=== PATIENT | female | born 1965 | race Two or more races ===

== ENCOUNTER 2023-12-10 16:51 | Inpatient (IN) | payer MEDICAID ==
[~2023-12-10] VITALS: Ht 160 cm; Wt 74.4 kg
[2023-12-10 18:40] VITALS: BP 106/56; PULSE 82; RESP 14; TEMP 98.3; O2SAT 95
[2023-12-10 18:47] VITALS: RESP 18; O2SAT 98
[2023-12-10] MEDS ORDERED: NITROGLYCERIN 0.4 MG SL TAB SL PRN (19:45)
[2023-12-10] MEDS ORDERED: MORPHINE SULFATE INJ 2 MG/ml SYRG IV PRN ×2 (19:45)
[2023-12-10] MEDS ORDERED: HYDROcodone-ACET 5/325MG TAB PO PRN (19:45)
[2023-12-10] MEDS ORDERED: DOCUSATE SOD 100 MG CAP PO PRN (19:45)
[2023-12-10] MEDS ORDERED: LISI20TA56 PO (19:45)
[2023-12-10] MEDS ORDERED: CELE200C PO (19:47)
[2023-12-10 20:00] VITALS: PULSE 76; RESP 17
[2023-12-10 20:49] VITALS: BP 127/77; PULSE 80; RESP 14; TEMP 98.3; O2SAT 99
[2023-12-10] MEDS: ATORVASTATIN 20 MG TAB PO SCH (22:46)
[2023-12-10] MEDS: ENOXAPARIN SOD 80 MG/0.8ML SYRINGE SC ONE (22:47)
[2023-12-11] VITALS (9 sets, daily range): BP systolic 101–132; BP diastolic 59–75; PULSE 76–91; RESP 14–18; TEMP 98–98.9; O2SAT 93–97
[2023-12-11] MEDS: cefTRIAXone 1GM/50ML D5W 50 ML IV SCH (04:11)
[2023-12-11 06:07] LABS: Basophils # (auto) 0 10 ^3/uL (0-0.2); Basophils % (auto) 0.5 % (0.0-2.0); Eosinophils # (auto) 0.1 10 ^3/uL (0-0.8); Eosinophils % (auto) 1.5 % (0.0-7.0); Hematocrit 35.2 % (36.0-46.0); Hemoglobin 11.3 g/dL (12.2-16.2); Lymphocytes # (auto) 0.9 10 ^3/uL (0.4-5.4); Lymphocytes % (auto) 17.1 % (10.0-50.0); Mean Corpuscular Hemoglobin 28.7 pg (28.0-32.0); Mean Corpuscular Hgb Conc. 32.1 g/dL (32.0-36.0); Mean Corpuscular Volume 89.2 fL (80.0-100.0); Monocytes # (auto) 0.6 10 ^3/uL (0-1.3); Monocytes % (auto) 11.4 % (0.0-12.0); Neutrophils # (auto) 3.7 10 ^3/uL (1.6-8.6); Neutrophils % (auto) 69.5 % (37.0-80.0); Red Blood Cells 3.95 10^6/uL (4.0-5.20); Red Cell Distribution Width 13.4 % (11.8-14.3); White Blood Cell 5.3 10^3/uL (4.4-10.8)
[2023-12-11 06:10] LABS: Urine Bacteria None Seen /hpf (None Seen)
[2023-12-11 06:13] LABS: Alanine Aminotransferase 55 U/L (7-40); Albumin 3.5 g/dL (3.2-4.8); Alkaline Phosphatase 143 U/L (46-116); Anion Gap 7 (5-15); Aspartate Aminotransferase 57 U/L (13-40); Bilirubin, Total 0.3 mg/dL (0.2-1.0); Blood Urea Nitrogen 13 mg/dL (9-23); Calcium 8.9 mg/dL (8.5-10.1); Carbon Dioxide 26 mmol/L (20-30); Chloride 110 mmol/L (98-107); Glucose 99 mg/dL (74-106); Potassium 4.3 mmol/L (3.5-5.1); Sodium 143 mmol/L (136-145); Total Protein 5.9 g/dL (5.7-8.2)
[2023-12-11 06:18] LABS: BUN/Creatinine Ratio 18.6 (10.0-20.0)
[2023-12-11 06:43] LABS: Urine Blood Negative /uL (Negative); Urine Clarity Clear (Clear); Urine Color Yellow (Yellow); Urine Mucus FEW (None Seen); Urine Protein, UAD TRACE (Negative); Urine Specific Gravity 1.024 (1.001-1.035); Urine Urobilinogen 3 mg/dL (Negative); Urine WBC 3 /hpf (0 - 5)
[2023-12-11] MEDS ORDERED: ENOXAPARIN SOD 80 MG/0.8ML SYRINGE SC SCH (10:00)
[2023-12-11] MEDS: ASPirin-EC 81 mg tab PO SCH (10:46)
[2023-12-11] MEDS: METOPROLOL TARTRATE 25 MG TAB PO SCH (10:46)
[2023-12-11] MEDS: ONDANSETRON HCL 4 MG/2 ML VIAL IV PRN (13:36)
[2023-12-11] MEDS: ACETAMINOPHEN 325 MG TAB PO PRN (21:30)
[2023-12-11] MEDS: ATORVASTATIN 20 MG TAB PO SCH (21:33)
[2023-12-11] MEDS: ENOXAPARIN SOD 80 MG/0.8ML SYRINGE SC SCH (21:37)
[2023-12-12] VITALS (8 sets, daily range): BP systolic 101–128; BP diastolic 57–72; PULSE 62–92; RESP 16–20; TEMP 98–98.6; O2SAT 93–98
[2023-12-12 06:15] LABS: Basophils # (auto) 0 10 ^3/uL (0-0.2); Basophils % (auto) 0.4 % (0.0-2.0); Eosinophils # (auto) 0.1 10 ^3/uL (0-0.8); Eosinophils % (auto) 1.9 % (0.0-7.0); Hematocrit 37.4 % (36.0-46.0); Lymphocytes # (auto) 1.3 10 ^3/uL (0.4-5.4); Lymphocytes % (auto) 21.5 % (10.0-50.0); Mean Corpuscular Hemoglobin 28.8 pg (28.0-32.0); Monocytes # (auto) 0.7 10 ^3/uL (0-1.3); Monocytes % (auto) 11.1 % (0.0-12.0); Neutrophils # (auto) 4.1 10 ^3/uL (1.6-8.6); Neutrophils % (auto) 65.1 % (37.0-80.0); Nucleated Red Blood Cells % 0.1 %; Red Blood Cells 4.15 10^6/uL (4.0-5.20); Red Cell Distribution Width 13.3 % (11.8-14.3); White Blood Cell 6.2 10^3/uL (4.4-10.8)
[2023-12-12 06:24] LABS: Chloride 106 mmol/L (98-107); Potassium 4.3 mmol/L (3.5-5.1); Sodium 140 mmol/L (136-145)
[2023-12-12 06:25] LABS: Anion Gap 4 (5-15); Calcium 9.4 mg/dL (8.5-10.1); Carbon Dioxide 30 mmol/L (20-30)
[2023-12-12 06:30] LABS: BUN/Creatinine Ratio 15.2 (10.0-20.0); Blood Urea Nitrogen 10 mg/dL (9-23); Glucose 95 mg/dL (74-106)
[2023-12-13] VITALS (13 sets, daily range): BP systolic 101–167; BP diastolic 52–80; PULSE 75–96; RESP 16–21; TEMP 97.5–98.2; O2SAT 90–99
[2023-12-13 06:17] LABS: Basophils # (auto) 0 10 ^3/uL (0-0.2); Basophils % (auto) 0.4 % (0.0-2.0); Eosinophils # (auto) 0.1 10 ^3/uL (0-0.8); Eosinophils % (auto) 1.9 % (0.0-7.0); Hematocrit 36.3 % (36.0-46.0); Hemoglobin 11.7 g/dL (12.2-16.2); Lymphocytes # (auto) 1.3 10 ^3/uL (0.4-5.4); Mean Corpuscular Hemoglobin 29.1 pg (28.0-32.0); Mean Corpuscular Hgb Conc. 32.3 g/dL (32.0-36.0); Monocytes # (auto) 0.6 10 ^3/uL (0-1.3); Monocytes % (auto) 9.7 % (0.0-12.0); Neutrophils # (auto) 4.4 10 ^3/uL (1.6-8.6); Red Blood Cells 4.04 10^6/uL (4.0-5.20); Red Cell Distribution Width 13.4 % (11.8-14.3); White Blood Cell 6.5 10^3/uL (4.4-10.8)
[2023-12-13 06:23] LABS: Anion Gap 6 (5-15); Carbon Dioxide 29 mmol/L (20-30); Chloride 105 mmol/L (98-107); Potassium 4.4 mmol/L (3.5-5.1); Sodium 140 mmol/L (136-145)
[2023-12-13 06:24] LABS: Calcium 9.3 mg/dL (8.5-10.1)
[2023-12-13 06:29] LABS: BUN/Creatinine Ratio 13.7 (10.0-20.0); Blood Urea Nitrogen 10 mg/dL (9-23); Glucose 93 mg/dL (74-106)
[2023-12-13 09:21] LABS: Partial Thromboplastin Time 28.5 SEC (24.5-34.5); Prothrombin Time 10.6 sec (9.3-11.8)
[2023-12-13] MEDS: HEPARIN SODIUM (PORCINE) 5000 UNITS/ML 1ML VIAL ONE (10:06)
[2023-12-13] MEDS: VERAPAMIL 2.5MG/ML INJ 2ML VIAL IV ONE (10:06)
[2023-12-13] MEDS: fentaNYL CITRATE 100 MCG/2 ML VL ONE (10:06)
[2023-12-13] MEDS: ANGIOMAX 250 MG VIAL IV ONE (10:06)
[2023-12-13] MEDS: SODIUM CHL 0.9% 50 ML ONE (10:07)
[2023-12-13] MEDS: IODIXANOL 320MG/ML 100ML BTL IV ONE (10:07)
[2023-12-13] MEDS: MIDAZOLAM HCL 2MG/2ML 2ml VIAL (1mg/ml) ONE (10:07)
[2023-12-13] MEDS: LIDOCAINE 2%HCL (LOCAL ANESTH.) INJ 20ML MDV ONE (10:07)
[2023-12-13] MEDS: ATROPINE SULF 1 MG/10ml SYR ONE (10:52)
[2023-12-13] MEDS: TICAGRELOR 90 MG TAB ONE (11:21)
[2023-12-13] MEDS: ASPirin 81 mg TAB ONE (11:22)
[2023-12-13 13:06] LABS: Body Fluid Polymorphonuclear 6 % (0-25); Body Fluid Red Blood Cells 918 CUMM (0-2000); Body Fluid White Blood Cells 158 CUMM (0-200)
[2023-12-13] MEDS ORDERED: LISI10TA34 PO (15:41)
[2023-12-13] MEDS ORDERED: DICY20TA PO (15:44)
[2023-12-13] MEDS ORDERED: ROSU20TA14 PO (15:44)
[2023-12-13] MEDS ORDERED: OMEP20TA PO (15:44)
[2023-12-13] MEDS ORDERED: OXYB5TAB14 PO (15:44)
[2023-12-13] MEDS: CLOPIDOGREL BISULFATE 75 MG TAB PO ONE (20:58)
[2023-12-14] VITALS (8 sets, daily range): BP systolic 101–123; BP diastolic 52–70; PULSE 64–88; RESP 16–19; TEMP 97.3–98.2; O2SAT 82–100
[2023-12-14 06:17] LABS: Chloride 103 mmol/L (98-107); Potassium 4.2 mmol/L (3.5-5.1); Sodium 136 mmol/L (136-145)
[2023-12-14 06:18] LABS: Anion Gap 5 (5-15); Calcium 8.7 mg/dL (8.7-10.4); Carbon Dioxide 28 mmol/L (20-30)
[2023-12-14 06:23] LABS: BUN/Creatinine Ratio 14.3 (10.0-20.0); Blood Urea Nitrogen 9 mg/dL (9-23); Glucose 95 mg/dL (74-106)
[2023-12-14 06:32] LABS: Basophils # (auto) 0 10 ^3/uL (0-0.2); Basophils % (auto) 0.3 % (0.0-2.0); Eosinophils # (auto) 0.1 10 ^3/uL (0-0.8); Eosinophils % (auto) 1.3 % (0.0-7.0); Hematocrit 38.2 % (36.0-46.0); Hemoglobin 12.4 g/dL (12.2-16.2); Lymphocytes # (auto) 1.1 10 ^3/uL (0.4-5.4); Lymphocytes % (auto) 15.1 % (10.0-50.0); Mean Corpuscular Hemoglobin 29.4 pg (28.0-32.0); Mean Corpuscular Hgb Conc. 32.4 g/dL (32.0-36.0); Mean Corpuscular Volume 90.5 fL (80.0-100.0); Monocytes # (auto) 0.7 10 ^3/uL (0-1.3); Neutrophils # (auto) 5.4 10 ^3/uL (1.6-8.6); Neutrophils % (auto) 73.3 % (37.0-80.0); Red Blood Cells 4.22 10^6/uL (4.0-5.20); Red Cell Distribution Width 13.4 % (11.8-14.3); White Blood Cell 7.4 10^3/uL (4.4-10.8)
[2023-12-14] MEDS: CLOPIDOGREL BISULFATE 75 MG TAB PO SCH (09:29)
[2023-12-14] MEDS ORDERED: CLOP75TA70 PO (17:04)
[2023-12-14] MEDS ORDERED: MET25T PO (17:04)
[2023-12-14] MEDS ORDERED: ASPI-543 PO (17:04)
[2023-12-14] MEDS ORDERED: FURO1TAB31 PO (17:04)
[2023-12-14] MEDS ORDERED: SPIR25TA PO (17:04)
[2023-12-14] MEDS ORDERED: ATOR20TA50 PO (17:04)
[2023-12-15 10:06] LABS: Protein, Body Fluid 5.1 g/dL (.)
== END 2023-12-14 18:38 | disposition home or self-care (01) | DRG 174 ==
LOC: TELE-CENTR 18:30
PROVIDERS: ADMIT Nurse Practitioner Family; ATTEND Internal Medicine
PROC: 4A023N7 Measurement of Cardiac Sampling and Pressure, Left Heart, Percutaneous Approach (ICD-10-PCS; principal; 2023-12-13)
PROC: 027034Z Dilation of Coronary Artery, One Artery with Drug-eluting Intraluminal Device, Percutaneous Approach (ICD-10-PCS; 2023-12-13)
PROC: B2111ZZ Fluoroscopy of Multiple Coronary Arteries using Low Osmolar Contrast (ICD-10-PCS; 2023-12-13)
PROC: 02F03ZZ Fragmentation in Coronary Artery, One Artery, Percutaneous Approach (ICD-10-PCS; 2023-12-13)
PROC: 0W9G3ZZ Drainage of Peritoneal Cavity, Percutaneous Approach (ICD-10-PCS; 2023-12-13)
DX: I21.4 Non-ST elevation (NSTEMI) myocardial infarction (principal); J90 Pleural effusion, not elsewhere classified; R18.8 Other ascites; C22.8 Malignant neoplasm of liver, primary, unspecified as to type; E66.9 Obesity, unspecified; K40.90 Unilateral inguinal hernia, without obstruction or gangrene, not specified as recurrent; N39.0 Urinary tract infection, site not specified; K76.9 Liver disease, unspecified; E78.5 Hyperlipidemia, unspecified; I10 Essential (primary) hypertension; R73.03 Prediabetes; I25.10 Atherosclerotic heart disease of native coronary artery without angina pectoris; Z79.899 Other long term (current) drug therapy; Z68.28 Body mass index [BMI] 28.0-28.9, adult; Z79.82 Long term (current) use of aspirin
CPT/HCPCS: 36415; 49083; 71045; 76700; 76942; 80048; 80053; 81001; 83986; 84484; 85025; 85610; 85730; 87086; 87205; 89051; 92941; 92972; 93005; 93306; 93458; 99152; G0378; J2250; J2405; Q9967

== ENCOUNTER 2023-12-27 08:58 | Inpatient (IN) | payer MEDICAID ==
[~2023-12-27] VITALS: Ht 160 cm; Wt 70.6 kg
[~2023-12-27 08:58] MED LIST: ASPI-543 PO; ATOR20TA50 PO; CELE200C PO; CLOP75TA70 PO; DICY20TA PO; FURO1TAB31 PO; MET25T PO; OMEP20TA PO; OXYB5TAB14 PO; SPIR25TA PO
[2023-12-27 09:40] LABS: Basophils # (auto) 0 10 ^3/uL (0-0.2); Basophils % (auto) 0.5 % (0.0-2.0); Eosinophils # (auto) 0 10 ^3/uL (0-0.8); Eosinophils % (auto) 0.5 % (0.0-7.0); Hematocrit 35.6 % (36.0-46.0); Hemoglobin 11.7 g/dL (12.2-16.2); Lymphocytes # (auto) 1.1 10 ^3/uL (0.4-5.4); Lymphocytes % (auto) 13.3 % (10.0-50.0); Mean Corpuscular Hemoglobin 28.8 pg (28.0-32.0); Mean Corpuscular Hgb Conc. 32.9 g/dL (32.0-36.0); Mean Corpuscular Volume 87.5 fL (80.0-100.0); Monocytes # (auto) 0.8 10 ^3/uL (0-1.3); Monocytes % (auto) 9.6 % (0.0-12.0); Neutrophils # (auto) 6.2 10 ^3/uL (1.6-8.6); Neutrophils % (auto) 76.1 % (37.0-80.0); Nucleated Red Blood Cells % 0.1 %; Red Blood Cells 4.07 10^6/uL (4.0-5.20); Red Cell Distribution Width 13.4 % (11.8-14.3); White Blood Cell 8.2 10^3/uL (4.4-10.8)
[2023-12-27 09:54] LABS: Alanine Aminotransferase 30 U/L (7-40); Albumin 3.7 g/dL (3.2-4.8); Alkaline Phosphatase 129 U/L (46-116); Anion Gap 5 (5-15); Aspartate Aminotransferase 27 U/L (13-40); BUN/Creatinine Ratio 13.6 (10.0-20.0); Bilirubin, Total 0.8 mg/dL (0.2-1.0); Blood Urea Nitrogen 11 mg/dL (9-23); Calcium 8.9 mg/dL (8.5-10.1); Carbon Dioxide 30 mmol/L (20-30); Chloride 100 mmol/L (98-107); Glucose 92 mg/dL (74-106); Potassium 4.6 mmol/L (3.5-5.1); Sodium 135 mmol/L (136-145); Total Protein 6.2 g/dL (5.7-8.2)
[2023-12-27 11:06] LABS: Urine Bacteria None Seen /hpf (None Seen)
[2023-12-27 11:56] LABS: Urine Blood Negative /uL (Negative); Urine Clarity Turbid (Clear); Urine Color Yellow (Yellow); Urine Hyaline Cast FEW /lpf (0 - 2); Urine Mucus FEW (None Seen); Urine Protein, UAD Negative (Negative); Urine Specific Gravity 1.015 (1.001-1.035); Urine Urobilinogen 4 mg/dL (Negative); Urine WBC 10 /hpf (0 - 5); Urine pH 6.5 (5.0-9.0)
[2023-12-27] MEDS: IOHEXOL 300 MG/ML 100ML BOTTLE IJ ONE (15:42)
[2023-12-27] MEDS ORDERED: ONDANSETRON HCL 4 MG/2 ML VIAL IV PRN (15:45)
[2023-12-27] MEDS ORDERED: MORPHINE SULFATE INJ 2 MG/ml SYRG IV PRN ×2 (15:45)
[2023-12-27] MEDS ORDERED: HYDROcodone-ACET 5/325MG TAB PO PRN (15:45)
[2023-12-27] MEDS ORDERED: DOCUSATE SOD 100 MG CAP PO PRN (15:45)
[2023-12-27] MEDS ORDERED: ACETAMINOPHEN 325 MG TAB PO PRN (15:45)
[2023-12-27] MEDS ORDERED: NITROGLYCERIN 0.4 MG SL TAB SL PRN (15:45)
[2023-12-27 16:00] VITALS: BP 117/71; PULSE 90; RESP 18; TEMP 97.6; O2SAT 97
[2023-12-27] MEDS ORDERED: DICYCLOMINE HCL 10 MG CAP PO SCH (22:00)
[2023-12-27] MEDS ORDERED: METOPROLOL TARTRATE 25 MG TAB PO SCH (22:00)
[2023-12-27] MEDS ORDERED: ATORVASTATIN 20 MG TAB PO SCH (22:00)
[2023-12-28] MEDS ORDERED: CLOPIDOGREL BISULFATE 75 MG TAB PO SCH (10:00)
[2023-12-28] MEDS ORDERED: FUROSEMIDE 40 MG TAB PO SCH (10:00)
[2023-12-28] MEDS ORDERED: PANTOPRAZOLE 40 MG TAB PO SCH (10:00)
[2023-12-28] MEDS ORDERED: SPIRONOLACTONE 25 MG TAB PO SCH (10:00)
[2023-12-28] MEDS ORDERED: OXYBUTYNIN 5 MG PO SCH (10:00)
[2023-12-28] MEDS ORDERED: ASPirin-EC 81 mg tab PO SCH (10:00)
== END 2023-12-27 18:58 | disposition left against medical advice (07) ==
LOC: ER 08:58 → TELE 15:34
PROVIDERS: ADMIT Internal Medicine; ATTEND Internal Medicine
DX: K74.60 Unspecified cirrhosis of liver (principal); R18.8 Other ascites; I10 Essential (primary) hypertension; I25.10 Atherosclerotic heart disease of native coronary artery without angina pectoris; Z79.899 Other long term (current) drug therapy; Z79.82 Long term (current) use of aspirin; Z90.49 Acquired absence of other specified parts of digestive tract; Z98.61 Coronary angioplasty status
CPT/HCPCS: 36415; 76705; 80053; 81001; 84484; 85025; 93005; G0378

== ENCOUNTER 2023-12-31 12:41 | Inpatient (IN) | payer MEDICAID ==
[~2023-12-31] VITALS: Ht 160 cm; Wt 69.8 kg
[2023-12-31 13:47] LABS: Urine Bacteria None Seen /hpf (None Seen)
[2023-12-31 14:13] LABS: Urine Blood Negative /uL (Negative); Urine Clarity Clear (Clear); Urine Color Light-Yellow (Yellow); Urine Protein, UAD Negative (Negative); Urine Urobilinogen 3 mg/dL (Negative); Urine WBC 2 /hpf (0 - 5)
[2023-12-31 14:15] LABS: Basophils # (auto) 0 10 ^3/uL (0-0.2); Basophils % (auto) 0.6 % (0.0-2.0); Eosinophils # (auto) 0.1 10 ^3/uL (0-0.8); Hematocrit 33.5 % (36.0-46.0); Hemoglobin 10.8 g/dL (12.2-16.2); Lymphocytes % (auto) 16.2 % (10.0-50.0); Mean Corpuscular Hemoglobin 28.2 pg (28.0-32.0); Mean Corpuscular Hgb Conc. 32.2 g/dL (32.0-36.0); Mean Corpuscular Volume 87.5 fL (80.0-100.0); Monocytes # (auto) 0.7 10 ^3/uL (0-1.3); Monocytes % (auto) 11.1 % (0.0-12.0); Neutrophils # (auto) 4.3 10 ^3/uL (1.6-8.6); Neutrophils % (auto) 70.1 % (37.0-80.0); Nucleated Red Blood Cells % 0.1 %; Red Blood Cells 3.83 10^6/uL (4.0-5.20); Red Cell Distribution Width 13.8 % (11.8-14.3); White Blood Cell 6.2 10^3/uL (4.4-10.8)
[2023-12-31 14:29] LABS: Alanine Aminotransferase 26 U/L (7-40); Albumin 3.5 g/dL (3.2-4.8); Alkaline Phosphatase 99 U/L (46-116); Anion Gap 1 (5-15); Aspartate Aminotransferase 27 U/L (13-40); BUN/Creatinine Ratio 20.5 (10.0-20.0); Bilirubin, Total 0.4 mg/dL (0.2-1.0); Blood Urea Nitrogen 17 mg/dL (9-23); Calcium 8.8 mg/dL (8.7-10.4); Carbon Dioxide 31 mmol/L (20-30); Chloride 102 mmol/L (98-107); Glucose 87 mg/dL (74-106); Lipase 57 U/L (12-53); Potassium 4.8 mmol/L (3.5-5.1); Sodium 134 mmol/L (136-145); Total Protein 6.1 g/dL (5.7-8.2)
[2023-12-31 14:35] LABS: INR 1.04 (0.9-1.15); Partial Thromboplastin Time 28.2 SEC (24.5-34.5)
[2023-12-31 14:42] LABS: Urine Specific Gravity 1.047 (1.001-1.035)
[2023-12-31] MEDS: MORPHINE SULFATE 4 MG/ML SYR/VIAL IV ONE (15:46)
[2023-12-31] MEDS: ONDANSETRON HCL 4 MG/2 ML VIAL IV ONE (15:46)
[2023-12-31] MEDS ORDERED: HYDROcodone-ACET 5/325MG TAB PO PRN (23:30)
[2023-12-31] MEDS ORDERED: NITROGLYCERIN 0.4 MG SL TAB SL PRN (23:30)
[2023-12-31] MEDS ORDERED: MORPHINE SULFATE INJ 2 MG/ml SYRG IV PRN ×2 (23:30)
[2023-12-31] MEDS ORDERED: DOCUSATE SOD 100 MG CAP PO PRN (23:30)
[2023-12-31] MEDS ORDERED: ONDANSETRON HCL 4 MG/2 ML VIAL IV PRN (23:30)
[2024-01-01] VITALS (7 sets, daily range): BP systolic 106–127; BP diastolic 59–72; PULSE 78–93; RESP 14–18; TEMP 97.6–98.4; O2SAT 90–100
[2024-01-01 06:54] LABS: Basophils # (auto) 0 10 ^3/uL (0-0.2); Basophils % (auto) 0.4 % (0.0-2.0); Eosinophils # (auto) 0.1 10 ^3/uL (0-0.8); Eosinophils % (auto) 2.3 % (0.0-7.0); Hematocrit 31.4 % (36.0-46.0); Hemoglobin 10.4 g/dL (12.2-16.2); Lymphocytes # (auto) 0.8 10 ^3/uL (0.4-5.4); Lymphocytes % (auto) 13.3 % (10.0-50.0); Mean Corpuscular Hemoglobin 29.1 pg (28.0-32.0); Mean Corpuscular Hgb Conc. 33.2 g/dL (32.0-36.0); Mean Corpuscular Volume 87.8 fL (80.0-100.0); Monocytes # (auto) 0.7 10 ^3/uL (0-1.3); Monocytes % (auto) 11.5 % (0.0-12.0); Neutrophils # (auto) 4.2 10 ^3/uL (1.6-8.6); Neutrophils % (auto) 72.5 % (37.0-80.0); Red Blood Cells 3.58 10^6/uL (4.0-5.20); White Blood Cell 5.8 10^3/uL (4.4-10.8)
[2024-01-01 07:02] LABS: Chloride 103 mmol/L (98-107); Potassium 4.7 mmol/L (3.5-5.1); Sodium 137 mmol/L (136-145)
[2024-01-01 07:03] LABS: Anion Gap 4 (5-15); Carbon Dioxide 30 mmol/L (20-30)
[2024-01-01 07:04] LABS: Calcium 9.2 mg/dL (8.5-10.1)
[2024-01-01 07:09] LABS: BUN/Creatinine Ratio 20.3 (10.0-20.0); Blood Urea Nitrogen 16 mg/dL (9-23); Glucose 77 mg/dL (74-106)
[2024-01-01] MEDS: ACETAMINOPHEN 325 MG TAB PO PRN (20:13)
[2024-01-02] VITALS (8 sets, daily range): BP systolic 107–127; BP diastolic 51–73; PULSE 77–94; RESP 18–20; TEMP 97.5–98.5; O2SAT 92–98
[2024-01-02 07:07] LABS: Basophils # (auto) 0 10 ^3/uL (0-0.2); Basophils % (auto) 0.3 % (0.0-2.0); Eosinophils # (auto) 0.1 10 ^3/uL (0-0.8); Eosinophils % (auto) 2.3 % (0.0-7.0); Hematocrit 31.4 % (36.0-46.0); Hemoglobin 10.4 g/dL (12.2-16.2); Lymphocytes # (auto) 0.7 10 ^3/uL (0.4-5.4); Lymphocytes % (auto) 12.4 % (10.0-50.0); Mean Corpuscular Hemoglobin 28.7 pg (28.0-32.0); Mean Corpuscular Hgb Conc. 33.1 g/dL (32.0-36.0); Mean Corpuscular Volume 86.8 fL (80.0-100.0); Monocytes # (auto) 0.6 10 ^3/uL (0-1.3); Monocytes % (auto) 10.3 % (0.0-12.0); Neutrophils % (auto) 74.7 % (37.0-80.0); Red Blood Cells 3.62 10^6/uL (4.0-5.20); Red Cell Distribution Width 13.9 % (11.8-14.3); White Blood Cell 5.4 10^3/uL (4.4-10.8)
[2024-01-02 07:41] LABS: Anion Gap 5 (5-15); Carbon Dioxide 29 mmol/L (20-30); Chloride 102 mmol/L (98-107); Potassium 4.5 mmol/L (3.5-5.1); Sodium 136 mmol/L (136-145)
[2024-01-02 07:43] LABS: Calcium 8.9 mg/dL (8.5-10.1)
[2024-01-02 07:47] LABS: BUN/Creatinine Ratio 14.9 (10.0-20.0); Blood Urea Nitrogen 10 mg/dL (9-23); Glucose 72 mg/dL (74-106)
[2024-01-02] MEDS: ATORVASTATIN 20 MG TAB PO SCH (21:47)
[2024-01-02] MEDS: DICYCLOMINE HCL 10 MG CAP PO SCH (21:47)
[2024-01-02] MEDS: CELECOXIB 100 MG CAP PO SCH (21:47)
[2024-01-02] MEDS: METOPROLOL TARTRATE 25 MG TAB PO SCH (21:48)
[2024-01-03] VITALS (8 sets, daily range): BP systolic 99–129; BP diastolic 52–80; PULSE 84–91; RESP 18–21; TEMP 97.9–98.4; O2SAT 90–96
[2024-01-03 06:19] LABS: Basophils # (auto) 0 10 ^3/uL (0-0.2); Basophils % (auto) 0.4 % (0.0-2.0); Eosinophils # (auto) 0.1 10 ^3/uL (0-0.8); Eosinophils % (auto) 1.6 % (0.0-7.0); Hematocrit 33.3 % (36.0-46.0); Hemoglobin 10.9 g/dL (12.2-16.2); Lymphocytes # (auto) 0.7 10 ^3/uL (0.4-5.4); Lymphocytes % (auto) 14.1 % (10.0-50.0); Mean Corpuscular Hemoglobin 28.4 pg (28.0-32.0); Mean Corpuscular Hgb Conc. 32.8 g/dL (32.0-36.0); Mean Corpuscular Volume 86.7 fL (80.0-100.0); Monocytes # (auto) 0.6 10 ^3/uL (0-1.3); Monocytes % (auto) 12.1 % (0.0-12.0); Neutrophils # (auto) 3.7 10 ^3/uL (1.6-8.6); Neutrophils % (auto) 71.8 % (37.0-80.0); Red Blood Cells 3.84 10^6/uL (4.0-5.20); Red Cell Distribution Width 13.8 % (11.8-14.3); White Blood Cell 5.1 10^3/uL (4.4-10.8)
[2024-01-03 06:30] LABS: Anion Gap 4 (5-15); Carbon Dioxide 30 mmol/L (20-30); Chloride 102 mmol/L (98-107); Potassium 4.4 mmol/L (3.5-5.1); Sodium 136 mmol/L (136-145)
[2024-01-03 06:34] LABS: INR 1.02 (0.9-1.15); Partial Thromboplastin Time 29.2 SEC (24.5-34.5); Prothrombin Time 10.8 sec (9.3-11.8)
[2024-01-03 06:37] LABS: BUN/Creatinine Ratio 12.1 (10.0-20.0); Blood Urea Nitrogen 8 mg/dL (9-23); Glucose 82 mg/dL (74-106)
[2024-01-03] MEDS: PANTOPRAZOLE 40 MG TAB PO SCH (09:31)
[2024-01-03] MEDS: SPIRONOLACTONE 25 MG TAB PO SCH (09:31)
[2024-01-03] MEDS: OXYBUTYNIN CHL 5 MG TAB PO SCH (09:31)
[2024-01-03] MEDS: FUROSEMIDE 40 MG TAB PO SCH (09:32)
[2024-01-03 13:14] LABS: Body Fluid Red Blood Cells 1000 CUMM (0-2000); Body Fluid White Blood Cells 350 CUMM (0-200)
[2024-01-03 13:15] LABS: Body Fluid Polymorphonuclear 5 % (0-25)
[2024-01-03] MEDS ORDERED: ALBUMIN 25% 100 ML IV ONE (15:30)
[2024-01-03] MEDS: ALBUMIN 25% IV ONE (16:30)
[2024-01-04] VITALS (11 sets, daily range): BP systolic 93–118; BP diastolic 53–68; PULSE 71–84; RESP 14–20; TEMP 97.2–97.6; O2SAT 90–99
[2024-01-04 08:06] LABS: Carbohydrate Antigen 19-9 <2 U/mL (0-35)
[2024-01-04] MEDS: LIDOCAINE 2%HCL (LOCAL ANESTH.) INJ 20ML MDV ONE (12:11)
[2024-01-04] MEDS: HEPARIN SODIUM (PORCINE) 5000 UNITS/ML 1ML VIAL ONE (12:34)
[2024-01-04] MEDS: fentaNYL CITRATE 100 MCG/2 ML VL ONE (12:34)
[2024-01-04] MEDS: MIDAZOLAM HCL 2MG/2ML 2ml VIAL (1mg/ml) ONE (12:35)
[2024-01-04] MEDS: ceFAZolin 1GM/50ML 50 ML IV ONE (12:46)
[2024-01-04 13:07] LABS: Protein, Body Fluid 4.8 g/dL (.)
[2024-01-05 06:07] LABS: CA 27.29 877.3 U/mL (0.0-38.6)
== END 2024-01-04 20:40 | disposition home or self-care (01) | DRG 240 ==
LOC: ER 12:43 → TELE 23:36 → TELE-CENTR 23:36
PROVIDERS: ADMIT Nurse Practitioner Family; ATTEND Hospitalist
PROC: 0W9G3ZZ Drainage of Peritoneal Cavity, Percutaneous Approach (ICD-10-PCS; principal; 2024-01-03)
PROC: 0JH63XZ Insertion of Tunneled Vascular Access Device into Chest Subcutaneous Tissue and Fascia, Percutaneous Approach (ICD-10-PCS; 2024-01-04)
PROC: 02H633Z Insertion of Infusion Device into Right Atrium, Percutaneous Approach (ICD-10-PCS; 2024-01-04)
PROC: B5181ZA Fluoroscopy of Superior Vena Cava using Low Osmolar Contrast, Guidance (ICD-10-PCS; 2024-01-04)
PROC: B548ZZA Ultrasonography of Superior Vena Cava, Guidance (ICD-10-PCS; 2024-01-04)
DX: C78.6 Secondary malignant neoplasm of retroperitoneum and peritoneum (principal); R18.0 Malignant ascites; K74.60 Unspecified cirrhosis of liver; I25.10 Atherosclerotic heart disease of native coronary artery without angina pectoris; D64.9 Anemia, unspecified; I10 Essential (primary) hypertension; Z98.61 Coronary angioplasty status; Z82.49 Family history of ischemic heart disease and other diseases of the circulatory system; Z83.3 Family history of diabetes mellitus; Z90.49 Acquired absence of other specified parts of digestive tract; Z85.43 Personal history of malignant neoplasm of ovary
CPT/HCPCS: 36415; 36558; 49083; 71045; 74176; 76705; 76942; 77001; 80048; 80053; 81001; 82378; 83615; 83690; 83986; 85025; 85610; 85730; 86300; 86301; 86304; 86850; 86900; 86901; 87081; 87205; 89051; 93005; 96374; 96375; 99152; G0378; J2250; J2405; P9047

== ENCOUNTER 2024-01-20 10:16 | Emergency (ER) | payer MEDICAID ==
[~2024-01-20] VITALS: Ht 167.6 cm; Wt 66.6 kg
[2024-01-20] MEDS: FUROSEMIDE 100 MG/10ML VIAL IV ONE (11:05)
[2024-01-20 11:14] LABS: Basophils # (auto) 0 10 ^3/uL (0-0.2); Basophils % (auto) 0.6 % (0.0-2.0); Eosinophils # (auto) 0.1 10 ^3/uL (0-0.8); Eosinophils % (auto) 1.6 % (0.0-7.0); Hematocrit 34.4 % (36.0-46.0); Hemoglobin 11.1 g/dL (12.2-16.2); Lymphocytes # (auto) 1.3 10 ^3/uL (0.4-5.4); Lymphocytes % (auto) 23.3 % (10.0-50.0); Mean Corpuscular Hemoglobin 27.7 pg (28.0-32.0); Mean Corpuscular Hgb Conc. 32.1 g/dL (32.0-36.0); Mean Corpuscular Volume 86.2 fL (80.0-100.0); Monocytes # (auto) 0.5 10 ^3/uL (0-1.3); Monocytes % (auto) 9.4 % (0.0-12.0); Neutrophils # (auto) 3.7 10 ^3/uL (1.6-8.6); Neutrophils % (auto) 65.1 % (37.0-80.0); Nucleated Red Blood Cells % 0.1 %; Red Blood Cells 3.99 10^6/uL (4.0-5.20); Red Cell Distribution Width 14.7 % (11.8-14.3); White Blood Cell 5.7 10^3/uL (4.4-10.8)
[2024-01-20] MEDS: ACETAMINOPHEN 325 MG TAB PO ONE (11:15)
[2024-01-20 11:25] LABS: Alanine Aminotransferase 28 U/L (7-40); Albumin 3.8 g/dL (3.2-4.8); Alkaline Phosphatase 106 U/L (46-116); Anion Gap 5 (5-15); Aspartate Aminotransferase 20 U/L (13-40); BUN/Creatinine Ratio 15.8 (10.0-20.0); Blood Urea Nitrogen 12 mg/dL (9-23); Carbon Dioxide 26 mmol/L (20-30); Chloride 107 mmol/L (98-107); Glucose 111 mg/dL (74-106); Magnesium 2.1 mg/dL (1.6-2.6); Potassium 4.4 mmol/L (3.5-5.1); Sodium 138 mmol/L (136-145)
[2024-01-20 11:26] LABS: Bilirubin, Total 0.5 mg/dL (0.2-1.0); Total Protein 6.7 g/dL (5.7-8.2)
[2024-01-20 11:32] LABS: INR 1.04 (0.9-1.15); Partial Thromboplastin Time 28.5 SEC (24.5-34.5)
[2024-01-20 12:08] LABS: Urine Bacteria None Seen /hpf (None Seen)
[2024-01-20 12:17] LABS: Urine Blood Negative /uL (Negative); Urine Clarity Clear (Clear); Urine Color Colorless (Yellow); Urine Mucus FEW (None Seen); Urine Protein, UAD Negative (Negative); Urine Specific Gravity 1.005 (1.001-1.035); Urine Urobilinogen Normal (Negative); Urine WBC <1 /hpf (0 - 5); Urine pH 5.5 (5.0-9.0)
[2024-01-20 13:38] VITALS: TEMP 97.5
[2024-01-20] MEDS ORDERED: FURO1TAB33 PO (13:44)
[2024-01-20 15:00] VITALS: BP 118/73; PULSE 81; RESP 18; O2SAT 97
== END 2024-01-20 15:10 | disposition home or self-care (01) ==
LOC: ER 10:16
DX: R18.8 Other ascites (principal); I10 Essential (primary) hypertension; E78.5 Hyperlipidemia, unspecified; Z85.9 Personal history of malignant neoplasm, unspecified; Z90.49 Acquired absence of other specified parts of digestive tract; Z98.61 Coronary angioplasty status; Z79.899 Other long term (current) drug therapy
CPT/HCPCS: 36415; 71045; 76705; 80053; 81001; 83605; 83735; 83880; 84484; 85025; 85610; 85730; 93005; 96374; 99285; J1940